=== PATIENT | male | born 1990 | race African-American/Black ===

== ENCOUNTER 2018-06-01 09:40 | Emergency (ER) | payer MEDICAID, OTHER ==
[~2018-06-01] VITALS: Ht 185.4 cm; Wt 75.0 kg
[2018-06-01 14:00] VITALS: BP 136/76
== END 2018-06-01 14:05 | disposition home or self-care (01) ==
LOC: ER 09:40
DX: K64.4 Residual hemorrhoidal skin tags (principal); K92.2 Gastrointestinal hemorrhage, unspecified; F12.10 Cannabis abuse, uncomplicated; Z98.890 Other specified postprocedural states
CPT/HCPCS: 99283